=== PATIENT | male | born 1945 | race Caucasian/White ===

== ENCOUNTER 2023-02-16 06:02 | Inpatient (IN) ==
[2023-02-16] MEDS ORDERED: Ondansetron 4 mg VIAL 2 MG/ML 2 ml VIAL IV ONE (06:32)
[2023-02-16 07:03] LABS: INR 4.44 (0.88-1.18)
[2023-02-16 07:05] LABS: Hemoglobin 12.4 g/dL (13.2-16.3); Mean Corpuscular Hemoglobin 30.9 pg (27-33); Mean Corpuscular Hgb Conc 32.6 g/dL (31-36); Mean Corpuscular Volume 94.8 fL (80-97); Mean Platelet Volume 7.6 fL (7.5-11.2); Platelet Count 221 10^3/uL (150-450); Red Blood Count 4.01 10^6/uL (4.06-5.63); Red Cell Distribution Width 15.8 % (12-17); White Blood Count 25.5 10^3/uL (3.6-10.2)
[2023-02-16] MEDS ORDERED: Piperacillin/Tazobac ADVAN 3.375 GM in NS 0.9% 100 ml BAG 100 ML IV ONE (07:26)
[2023-02-16] MEDS ORDERED: Lactated Ringers 1000 ml BAG 1,000 ML IV ONE (07:26)
[2023-02-16 07:28] LABS: Albumin 3.5 g/dL (3.2-5.2); Albumin/Globulin Ratio 1.2 (1-3); Calcium 8.5 mg/dL (8.6-10.3); Creatinine, Serum 1.79 mg/dL (0.67-1.17); Globulin 2.9 g/dL (2-4); Potassium 5.9 mmol/L (3.5-5.0); Total Bilirubin 0.6 mg/dL (0.2-1.0); Total Protein 6.4 g/dL (6.4-8.9)
[2023-02-16 07:33] LABS: ABS Basophils 0.2 10^3/uL (0.0-0.1); ABS Eosinophils 0.1 10^3/uL (0.0-0.5); ABS Lymphocytes 0.3 10^3/uL (1.0-4.8); ABS Nucleated RBC 0.01 10^3/ul; Eosinophil % 0.3 %; Lymphocyte % 1.1 %; RBC Morphology Normal (Normal)
[2023-02-16] MEDS ORDERED: Vancomycin 1,750 MG in NS 0.9% 250 ml 250 ML IVPB ONE (08:00)
[2023-02-16] MEDS ORDERED: Vancomycin 1,750 MG in NS 0.9% 500 ml BAG 500 ML IVPB ONE (08:00)
[2023-02-16 08:32] LABS: High Sensitivity Troponin 1 Hr 87 pg/mL (<20)
[2023-02-16] MEDS ORDERED: Lactated Ringers 1000 ml BAG 500 ML IV ONE (10:59)
[2023-02-16] MEDS ORDERED: Vancomycin per Pharmacy 1 EA NOTE FOLLOW UP SCH (11:00)
[2023-02-16] MEDS ORDERED: Zosyn per Pharmacy NOTE FOLLOW UP SCH (11:00)
[2023-02-16] MEDS: DOXYcycline 100 MG in NS 0.9% 250 ml 250 ML IVPB SCH ×2 (11:49→21:01)
[2023-02-16] MEDS ORDERED: Norepinephrine 16MCG/ML BAGD5W 4,000 MCG/250 ML BAG IV ONE (12:20)
[2023-02-16] MEDS: Norepinephrine 16MCG/ML BAGD5W 4,000 MCG/250 ML BAG IV SCH (12:33)
[2023-02-16] MEDS: ZOSYN 3.375 GM Q8H per EXTENDED INFUSION IV SCH ×2 (12:43→20:06)
[2023-02-16 16:04] LABS: Urine Appearance Cloudy; Urine Bilirubin Negative (Negative); Urine Blood 2+ (Negative); Urine Color Amber; Urine Glucose Negative (Negative); Urine Ketones Negative (Negative); Urine Nitrite Negative (Negative); Urine Protein 1+(30 mg/dL) (Negative); Urine Specific Gravity 1.025 (1.002-1.030); Urine Urobilinogen Negative (Negative)
[2023-02-16 16:13] LABS: Urine Bacteria Absent (Absent); Urine Red Blood Cell 2+(6-10/hpf) (Absent); Urine Sperm Present (Absent); Urine Squamous Epithelial Cell Present (Absent); Urine White Blood Cell 1+(6-10/hpf) (Absent)
[2023-02-16 16:32] LABS: Albumin 3.3 g/dL (3.2-5.2); Albumin/Globulin Ratio 1.4 (1-3); Calcium 7.7 mg/dL (8.6-10.3); Creatinine, Serum 2.22 mg/dL (0.67-1.17); Globulin 2.4 g/dL (2-4); Magnesium 1.9 mg/dL (1.9-2.7); Potassium 5.7 mmol/L (3.5-5.0); Total Bilirubin 1.1 mg/dL (0.2-1.0); Total Protein 5.7 g/dL (6.4-8.9); eGFR CKD-EPI 30.1 (>60)
[2023-02-16 18:43] LABS: Calcium 7.7 mg/dL (8.6-10.3); Creatinine, Serum 2.23 mg/dL (0.67-1.17); Magnesium 1.9 mg/dL (1.9-2.7); Potassium 5.6 mmol/L (3.5-5.0)
[2023-02-16] MEDS ORDERED: Vancomycin 1000 MG in NS 0.9% 250 ML IVPB SCH (23:00)
[2023-02-17] MEDS: Norepinephrine 16MCG/ML BAGD5W 4,000 MCG/250 ML BAG IV SCH (00:43)
[2023-02-17 04:20] LABS: Hematocrit 33.6 % (38-53); Mean Corpuscular Hemoglobin 30.8 pg (27-33); Mean Corpuscular Hgb Conc 32.8 g/dL (31-36); Mean Corpuscular Volume 93.8 fL (80-97); Mean Platelet Volume 7.2 fL (7.5-11.2); Platelet Count 158 10^3/uL (150-450); Red Blood Count 3.59 10^6/uL (4.06-5.63); Red Cell Distribution Width 15.3 % (12-17); White Blood Count 23.1 10^3/uL (3.6-10.2)
[2023-02-17 04:22] LABS: ABS Basophils 0.1 10^3/uL (0.0-0.1); ABS Eosinophils 0.4 10^3/uL (0.0-0.5); ABS Lymphocytes 0.5 10^3/uL (1.0-4.8); ABS Monocytes 1.2 10^3/uL (0.0-1.1); ABS Neutrophils 20.9 10^3/uL (1.5-7.6); Eosinophil % 1.6 %; Lymphocyte % 2.1 %
[2023-02-17] MEDS: ZOSYN 3.375 GM Q8H per EXTENDED INFUSION IV SCH (04:31)
[2023-02-17 05:02] LABS: Calcium 7.8 mg/dL (8.6-10.3); Creatinine, Serum 2.27 mg/dL (0.67-1.17); Phosphorus 4.7 mg/dL (2.5-5.0); Potassium 4.7 mmol/L (3.5-5.0); eGFR CKD-EPI 29.3 (>60)
[2023-02-17 08:33] LABS: INR 4.76 (0.88-1.18)
[2023-02-17] MEDS ORDERED: LORazepam 2 mg VIAL 1 ml IV PUSH ONE (09:18)
[2023-02-17] MEDS ORDERED: Lorazepam PYXIS KEY PRN (09:19)
[2023-02-17] MEDS ORDERED: Al Hydrox/Mg Hydrox/Simet LIQ 30 ML UDC PO ONE (09:19)
[2023-02-17] MEDS ORDERED: LORazepam 2 mg VIAL 1 ml ONE (09:22)
[2023-02-17] MEDS: cefTRIAXone 1 gm/50 mL D5W 1 GM/50 ML BAG IV SCH (09:41)
[2023-02-17] MEDS ORDERED: Phytonadione Oral Solution 5 MG/25 ML UDC PO ONE (09:54)
[2023-02-17] MEDS ORDERED: Sulfur Hexaflouride MICROSPHR 25 MG VIAL ONE (11:03)
[2023-02-18 05:01] LABS: ABS Basophils 0.1 10^3/uL (0.0-0.1); ABS Eosinophils 0.3 10^3/uL (0.0-0.5); ABS Lymphocytes 0.5 10^3/uL (1.0-4.8); ABS Neutrophils 13.2 10^3/uL (1.5-7.6); Eosinophil % 1.8 %; Hematocrit 31.9 % (38-53); Hemoglobin 10.4 g/dL (13.2-16.3); Lymphocyte % 3.2 %; Mean Corpuscular Hemoglobin 30.6 pg (27-33); Mean Corpuscular Hgb Conc 32.6 g/dL (31-36); Mean Platelet Volume 7.8 fL (7.5-11.2); Platelet Count 153 10^3/uL (150-450); Red Blood Count 3.39 10^6/uL (4.06-5.63); Red Cell Distribution Width 15.6 % (12-17); White Blood Count 15.1 10^3/uL (3.6-10.2)
[2023-02-18 05:09] LABS: INR 2.65 (0.88-1.18)
[2023-02-18 05:51] LABS: Creatinine, Serum 1.89 mg/dL (0.67-1.17); Magnesium 2.2 mg/dL (1.9-2.7); Phosphorus 4.1 mg/dL (2.5-5.0); Potassium 4.9 mmol/L (3.5-5.0); eGFR CKD-EPI 36.6 (>60)
[2023-02-18] MEDS: cefTRIAXone 1 gm/50 mL D5W 1 GM/50 ML BAG IV SCH (07:54)
[2023-02-18] MEDS ORDERED: Senna TAB 8.6 mg TAB PO PRN (09:14)
[2023-02-18] MEDS: Polyethylene Glycol 3350 17 GM PACKET PO SCH ×2 (09:48→21:31)
[2023-02-18] MEDS ORDERED: cefTRIAXone 1 gm/50 mL D5W 1 GM/50 ML BAG IV ONE (10:15)
[2023-02-18] MEDS ORDERED: Vancomycin Trough Check NOTE FOLLOW UP ONE (10:30)
[2023-02-18] MEDS: Warfarin DAILY REMINDER **NOTE FOLLOW UP SCH (17:34)
[2023-02-19] MEDS: Warfarin per PHARMACY **NOTE FOLLOW UP SCH ×2 (02:08→17:48)
[2023-02-19 04:50] LABS: ABS Basophils 0.1 10^3/uL (0.0-0.1); ABS Eosinophils 0.2 10^3/uL (0.0-0.5); ABS Lymphocytes 0.4 10^3/uL (1.0-4.8); ABS Monocytes 0.7 10^3/uL (0.0-1.1); Eosinophil % 1.9 %; Hematocrit 32.3 % (38-53); Hemoglobin 10.5 g/dL (13.2-16.3); Lymphocyte % 3.5 %; Mean Corpuscular Hemoglobin 30.4 pg (27-33); Mean Corpuscular Hgb Conc 32.5 g/dL (31-36); Mean Corpuscular Volume 93.6 fL (80-97); Mean Platelet Volume 7.3 fL (7.5-11.2); Platelet Count 150 10^3/uL (150-450); Red Blood Count 3.46 10^6/uL (4.06-5.63); Red Cell Distribution Width 15.3 % (12-17); White Blood Count 12.5 10^3/uL (3.6-10.2)
[2023-02-19 04:55] LABS: INR 1.83 (0.88-1.18)
[2023-02-19 05:23] LABS: Calcium 8.4 mg/dL (8.6-10.3); Creatinine, Serum 1.26 mg/dL (0.67-1.17); Magnesium 2.1 mg/dL (1.9-2.7); Phosphorus 3.4 mg/dL (2.5-5.0); eGFR CKD-EPI 59.5 (>60)
[2023-02-19] MEDS: Polyethylene Glycol 3350 17 GM PACKET PO SCH ×2 (08:41→20:08)
[2023-02-19] MEDS: cefTRIAXone 2 gm/50 mL D5W 2 GM/50 ML BAG IV SCH (08:43)
[2023-02-19] MEDS ORDERED: CMCS:Meloxicam 7.5 mg TAB (NF) PO SCH (09:00)
[2023-02-19 09:56] LABS: Ferritin 277.4 ng/mL (24-336)
[2023-02-19 11:06] LABS: Calcium 8.4 mg/dL (8.6-10.3); Creatinine, Serum 1.22 mg/dL (0.67-1.17); eGFR CKD-EPI 61.8 (>60)
[2023-02-19] MEDS: Warfarin DAILY REMINDER **NOTE FOLLOW UP SCH (17:48)
[2023-02-20 06:10] LABS: ABS Basophils 0.1 10^3/uL (0.0-0.1); ABS Eosinophils 0.3 10^3/uL (0.0-0.5); ABS Lymphocytes 0.6 10^3/uL (1.0-4.8); ABS Monocytes 0.8 10^3/uL (0.0-1.1); ABS Neutrophils 7.9 10^3/uL (1.5-7.6); Eosinophil % 3.4 %; Hemoglobin 11.7 g/dL (13.2-16.3); Lymphocyte % 5.8 %; Mean Corpuscular Hemoglobin 30.8 pg (27-33); Mean Corpuscular Hgb Conc 32.6 g/dL (31-36); Mean Corpuscular Volume 94.4 fL (80-97); Mean Platelet Volume 7.5 fL (7.5-11.2); Platelet Count 180 10^3/uL (150-450); Red Blood Count 3.81 10^6/uL (4.06-5.63); Red Cell Distribution Width 15.2 % (12-17); White Blood Count 9.6 10^3/uL (3.6-10.2)
[2023-02-20 06:17] LABS: INR 2.26 (0.88-1.18)
[2023-02-20 06:46] LABS: Magnesium 2.2 mg/dL (1.9-2.7); Phosphorus 3.7 mg/dL (2.5-5.0)
[2023-02-20] MEDS: cefTRIAXone 2 gm/50 mL D5W 2 GM/50 ML BAG IV SCH (08:33)
[2023-02-20] MEDS: Polyethylene Glycol 3350 17 GM PACKET PO SCH ×2 (08:34→20:34)
[2023-02-20] MEDS ORDERED: Furosemide 20 mg/2 ml IV VIAL IV ONE (15:21)
[2023-02-21 02:56] LABS: ABS Basophils 0.1 10^3/uL (0.0-0.1); ABS Eosinophils 0.3 10^3/uL (0.0-0.5); ABS Lymphocytes 0.8 10^3/uL (1.0-4.8); ABS Monocytes 0.7 10^3/uL (0.0-1.1); ABS Neutrophils 7.9 10^3/uL (1.5-7.6); Eosinophil % 3.2 %; Hematocrit 34.6 % (38-53); Hemoglobin 11.4 g/dL (13.2-16.3); Lymphocyte % 8.3 %; Mean Corpuscular Hgb Conc 33.1 g/dL (31-36); Mean Corpuscular Volume 93.8 fL (80-97); Mean Platelet Volume 7.5 fL (7.5-11.2); Platelet Count 184 10^3/uL (150-450); Red Blood Count 3.69 10^6/uL (4.06-5.63); Red Cell Distribution Width 15.4 % (12-17); White Blood Count 9.9 10^3/uL (3.6-10.2)
[2023-02-21 03:01] LABS: INR 3.5 (0.88-1.18)
[2023-02-21 03:37] LABS: Phosphorus 3.9 mg/dL (2.5-5.0)
[2023-02-21 03:38] LABS: Calcium 8.5 mg/dL (8.6-10.3); Creatinine, Serum 1.01 mg/dL (0.67-1.17); eGFR CKD-EPI 77.6 (>60)
[2023-02-21] MEDS: Warfarin DAILY REMINDER **NOTE FOLLOW UP SCH ×2 (07:03→16:29)
[2023-02-21] MEDS: Warfarin per PHARMACY **NOTE FOLLOW UP SCH ×2 (07:03→16:29)
[2023-02-21] MEDS: cefTRIAXone 2 gm/50 mL D5W 2 GM/50 ML BAG IV SCH (08:59)
[2023-02-21] MEDS: Polyethylene Glycol 3350 17 GM PACKET PO SCH ×2 (08:59→20:31)
[2023-02-22 05:51] LABS: ABS Basophils 0.1 10^3/uL (0.0-0.1); ABS Eosinophils 0.4 10^3/uL (0.0-0.5); ABS Lymphocytes 1.2 10^3/uL (1.0-4.8); ABS Monocytes 0.6 10^3/uL (0.0-1.1); ABS Neutrophils 7.7 10^3/uL (1.5-7.6); Eosinophil % 3.7 %; Hematocrit 34.2 % (38-53); Hemoglobin 11.2 g/dL (13.2-16.3); Lymphocyte % 11.9 %; Mean Corpuscular Hemoglobin 30.9 pg (27-33); Mean Corpuscular Hgb Conc 32.8 g/dL (31-36); Mean Corpuscular Volume 94.2 fL (80-97); Mean Platelet Volume 7.6 fL (7.5-11.2); Platelet Count 219 10^3/uL (150-450); Red Blood Count 3.63 10^6/uL (4.06-5.63); Red Cell Distribution Width 15.6 % (12-17); White Blood Count 9.9 10^3/uL (3.6-10.2)
[2023-02-22 06:02] LABS: INR 4.08 (0.88-1.18)
[2023-02-22 06:28] LABS: Calcium 8.4 mg/dL (8.6-10.3); Creatinine, Serum 1.16 mg/dL (0.67-1.17); Potassium 4.9 mmol/L (3.5-5.0); eGFR CKD-EPI 65.7 (>60)
[2023-02-22] MEDS: Polyethylene Glycol 3350 17 GM PACKET PO SCH ×2 (08:17→21:13)
[2023-02-22] MEDS ORDERED: Furosemide 20 mg/2 ml IV VIAL IV ONE (12:00)
[2023-02-22] MEDS ORDERED: Warfarin - No Order Today **NOTE FOLLOW UP ONE (17:00)
[2023-02-22] MEDS: Warfarin DAILY REMINDER **NOTE FOLLOW UP SCH (21:01)
[2023-02-22] MEDS: Warfarin per PHARMACY **NOTE FOLLOW UP SCH (21:02)
[2023-02-23 07:38] LABS: ABS Basophils 0.1 10^3/uL (0.0-0.1); ABS Eosinophils 0.4 10^3/uL (0.0-0.5); ABS Monocytes 0.7 10^3/uL (0.0-1.1); ABS Neutrophils 9.1 10^3/uL (1.5-7.6); Eosinophil % 3.7 %; Hematocrit 34.4 % (38-53); Hemoglobin 11.1 g/dL (13.2-16.3); Lymphocyte % 8.7 %; Mean Corpuscular Hemoglobin 30.5 pg (27-33); Mean Corpuscular Hgb Conc 32.4 g/dL (31-36); Mean Corpuscular Volume 94.3 fL (80-97); Mean Platelet Volume 7.3 fL (7.5-11.2); Platelet Count 264 10^3/uL (150-450); Red Blood Count 3.64 10^6/uL (4.06-5.63); Red Cell Distribution Width 15.6 % (12-17); White Blood Count 11.3 10^3/uL (3.6-10.2)
[2023-02-23 07:46] LABS: Calcium 8.6 mg/dL (8.6-10.3); Creatinine, Serum 1.13 mg/dL (0.67-1.17); Potassium 4.8 mmol/L (3.5-5.0); eGFR CKD-EPI 67.8 (>60)
[2023-02-23] MEDS: Polyethylene Glycol 3350 17 GM PACKET PO SCH (09:45)
[2023-02-23 10:17] VITALS: BP 93/58
[2023-02-23 13:30] LABS: INR 3.71 (0.88-1.18)
== END 2023-02-23 14:05 | disposition home or self-care (01) | DRG 871 ==
LOC: ED 06:02 → EDHOLD 10:31 → SUATTDRO 10:31 → EDHOLD 11:44 → ICU 12:05 → MED 02-19 10:14
PROVIDERS: ADMIT Internal Medicine; ATTEND Internal Medicine